=== PATIENT | female | born 1990 | race Caucasian/White ===

== ENCOUNTER 2016-08-14 18:51 | Emergency (ER) | payer SELFPAY ==
[~2016-08-14] VITALS: Ht 167.6 cm; Wt 88.3 kg
[~2016-08-14 18:51] MED LIST: Claritin,Alavart PO; Desyrel PO; FLEXERIL10 MG PO; MOTRIN800 MG PO; Motrin PO; Zoloft PO
[2016-08-14 23:04] LABS: ADD MIUA? YES; BILIRUBIN NEGATIVE; BLOOD NEGATIVE; COLOR YELLOW ((YELLOW)); GLUCOSE (STRIP) NEGATIVE; KETONES NEGATIVE; LEUKOCYTES MODERATE; NITRITE NEGATIVE; PROTEIN (STRIP) NEGATIVE; SPECIFIC GRAVITY 1.019 (1.000-1.030); UROBILINOGEN 0.2 MG/DL (0.2-1.0)
[2016-08-14 23:09] LABS: BACTERIA RARE /HPF; EPITHELIAL CELLS 1+ /HPF; HYALINE CASTS 0-5 /LPF; MUCUS TRACE /LPF; UCUL ADDED? NO
[2016-08-14 23:18] LABS: HEMATOCRIT 42.4 % (36.0-46.0); MCH 29.8 PG (29.0-34.0); MCHC 33.7 G/DL (30.0-36.0); MCV 88.3 FL (83-99); MEAN PLAT.VOLUME 12.1 uM^3 (9.5-12.4); PLATELET COUNT 234 K/uL (156-360); RBC DIS.WIDTH-CV 13.6 % (11.8-14.6); RBC DIS.WIDTH-SD 43.4 % (39-53); WHITE BLOOD COUNT 11.2 K/uL (4.1-10.2)
[2016-08-15 00:18] LABS: ERTH.SED.RATE 17 MM/HR (0-20)
[2016-08-15 00:43] LABS: CHLORIDE 109 mEq/L (99-109); POTASSIUM 3.9 mEq/L (3.7-5.4); SODIUM 140 mEq/L (136-147)
[2016-08-15 00:45] LABS: GLUCOSE 93 mg/dL (70-99)
[2016-08-15 00:46] LABS: ANION GAP 6 MEQ/L (2-14)
[2016-08-15 00:48] LABS: GFR ESTIMATE (CALCULATED) > 59 mL/min/
[2016-08-15 00:49] LABS: UREA NITROGEN (BUN) 9 mg/dL (9-23)
[2016-08-15 00:58] LABS: QUANTITATIVE HCG < 4.0 MIU/ML
[2016-08-15 01:08] VITALS: BP 117/65
== END 2016-08-15 01:09 | disposition home or self-care (01) ==
LOC: EME 18:51
PROVIDERS: Emergency Medicine
DX: R51 Headache (principal); R20.0 Anesthesia of skin; N39.0 Urinary tract infection, site not specified; F32.9 Major depressive disorder, single episode, unspecified; F17.200 Nicotine dependence, unspecified, uncomplicated; Z88.6 Allergy status to analgesic agent
CPT/HCPCS: 70450; 80048; 81003; 84702; 85027; 85651; 99281; 99284; J0780; J1200; J1885; J7030